=== PATIENT | female | born 1940 | race Caucasian/White ===

== ENCOUNTER 2016-04-28 09:25 | Emergency (ER) | payer MEDICARE, BC ==
[~2016-04-28 09:25] MED LIST: ALEVE220 MG PO; ALLERGY TAB PO; AMARYL2 PO; AQUASOL E50 UNT/ML PO; ASAB PO; B6 PO; BEN25 PO; CLARIT10 PO; CRANBERRY500 MG OR; GLYCOLAX PO; HALF81 PO; LOP25 PO; LOP50 PO; MOBIC7.5 PO; NORV25 PO; NORVASC 2.5 MG2.5 MG OR; P1 PO; PRAVAC PO; PRILO PO; SPIRO25 PO; TEARS PLUS OPH; THERGRANM PO
[2016-05-14] MEDS ORDERED: CORICIDI1 PO (15:50)
== END 2016-04-28 10:55 | disposition home or self-care (01) ==
LOC: ER 09:25
DX: L76.32 Postprocedural hematoma of skin and subcutaneous tissue following other procedure (principal); I10 Essential (primary) hypertension; K21.9 Gastro-esophageal reflux disease without esophagitis; E11.9 Type 2 diabetes mellitus without complications; Z88.2 Allergy status to sulfonamides; Z88.5 Allergy status to narcotic agent; Z88.8 Allergy status to other drugs, medicaments and biological substances; Z79.82 Long term (current) use of aspirin; Z79.899 Other long term (current) drug therapy; Z79.52 Long term (current) use of systemic steroids
CPT/HCPCS: 93923; 93926; 99284